=== PATIENT | female | born 1985 | race Caucasian/White ===

== ENCOUNTER 2019-08-29 18:43 | Emergency (ER) | payer MEDICAID ==
[~2019-08-29] VITALS: Ht 170.2 cm; Wt 67.6 kg
[2019-08-29 18:49] VITALS: Ht 170.2 cm; Wt 67.6 kg
[2019-08-29 22:15] VITALS: BP 121/71
== END 2019-08-29 22:15 | disposition home or self-care (01) ==
LOC: ED 18:43
DX: J20.9 Acute bronchitis, unspecified (principal); J45.909 Unspecified asthma, uncomplicated
CPT/HCPCS: J7620